=== PATIENT | female | born 1980 | race Caucasian/White ===

== ENCOUNTER → 2017-08-31 | Outpatient (CLI) | payer BC ==
[~2017-08-31] MED LIST: FRRS300 PO; IBUP600T44 PO; PRCUNK PO; PRENTAB26 PO
== END | disposition home or self-care (01) ==
LOC: C.PAPS 18:04
PROVIDERS: ATTEND Obstetrics & Gynecology
DX: Z01.419 Encounter for gynecological examination (general) (routine) without abnormal findings (principal)